=== PATIENT | female | born 1950 | race Caucasian/White ===

== ENCOUNTER 2020-12-28 08:46 | Outpatient (CLI) | payer MEDICARE, OTHER, SELFPAY ==
--- NOTE | 2020-12-28 09:00 | ECG_ITS ---
Measurements Intervals [place] Rate: 67 P: 68 AK: 202 QRS: 47 QRSD: 86 T: 33 QT: 374 QTc: 397 Interpretive Statements SINUS RHYTHM BORDERLINE R WAVE PROGRESSION, ANTERIOR LEADS BASELINE ARTIFACT- I, II, III, AVR, AVL, AVF BORDERLINE ECG Electronically Signed On 12-28-2020 9:11:10 CDT by Jordan Hunter D.O.
== END 2020-12-28 08:47 | disposition home or self-care (01) ==
PROVIDERS: PCP Family Medicine Sports Medicine; Visit Provider Orthopaedic Surgery
DX: E78.00 Pure hypercholesterolemia, unspecified (principal); Z01.818 Encounter for other preprocedural examination; R94.31 Abnormal electrocardiogram [ECG] [EKG]
CPT/HCPCS: 93005

== ENCOUNTER 2021-01-01 02:00 | Day surgery (SDC) | payer MEDICARE, OTHER, SELFPAY ==
[2020-12-27 11:13] VITALS: BMI 25.4
--- NOTE | 2020-12-29 15:26 | WPDANESEPPF ---
Anes - Initial Pre Proc Eval Procedure: Operation Date: 01/01/21 15:30 Proposed Procedures p Left Thumb Trigger Finger Release - Caden Avery MD Date/Time: 12/29/20 15:26 Surgeon: Caden Avery MD Pre Op Diagnosis: left thumb trigger finger Patient Data Age: 70 Gender: F Height: 1.57 m Weight: 63 kg Allergies Allergy/AdvReac Type Severity Reaction Status Date / Time No Known Allergies Allergy Verified 01/01/21 12:38 Home Medications Medication Instructions Recorded Confirmed Type atorvastatin 40 mg tablet 20 mg PO DAILY 04/20/19 01/01/21 History calcium carbonate-vitamin D3 600 1 tablet PO DAILY 04/20/19 01/01/21 History mg (1,500 mg)-800 unit tablet conjugated estrogens 0.625 mg/gram 0.625 mg VAGINAL WEEKLY PRN 04/20/19 01/01/21 History vaginal cream glucosamine-chondroitin 250 mg-200 1 tablet PO DAILY 04/20/19 01/01/21 History mg tablet jxmyuyff-cuf-PO 200 mcg-vit K 15 1 tablet PO DAILY 04/20/19 01/01/21 History mcg-lycope 150 ysj-[id number]-ibqm tablet multivitamin 1 tablet PO DAILY 04/20/19 01/01/21 History levothyroxine 112 mcg capsule 112 mcg PO QAM 09/28/19 01/01/21 History aspirin [Aspir-81] 81 mg PO DAILY 12/27/20 01/01/21 History Patient hx anesthesia problems: none Family hx anesthesia problems: none Results Review: All pre-operative results and documents have been reviewed as part of the pre-operative evaluation. FOR[facility]LY [facility], [facility] Past Medical History Medical History (Updated 12/29/20 @ 15:27 by Carlos Fung MD) Arthritis of carpometacarpal (CMC) joint of left thumb BMI 23.0-23.9, adult Colon cancer High cholesterol Hypothyroidism Osteoporosis Thyroid disease Trigger thumb of left hand Surgical History Surgical History Bone spur Elbows History of appendectomy 1964 History of bunionectomy History of cancer surgery 2016 History of section 1971,1975,1980 History of cholecystectomy 1997 History of fasciotomy Left Foot plantar 01/2018 History of hand surgery Right thumb CMC arthroplasty 2011 History of knee surgery Right Knee-Ligament 1997 History of partial hysterectomy 1980 History of total knee replacement (TKR) left 04/2015 History of total knee replacement (TKR) right 04/2018 Family History Family History Sibling Diabetes mellitus Cancer Heart disease Sibling Cancer Mother Heart disease Osteoporosis Social History Social History Smoking status: Never smoker Alcohol intake: current Drinks per week: 6 Alcohol use details: Occasional Substance use: never Living arrangements: with family Additional living arrangements comments: [facility] Gender identity (if verbalized by the patient): Female Spiritual care concerns: No Anes - Eval Final PreProcedure Day of Procedure 12/29/20 15:26 Patient weight: normal Heart: regular rate and rhythm Lungs: clear to auscultation and normal air movement Airway: Mallampati scale class II Neurological: alert and oriented Last oral intake: >/= 8 hours ASA classification: III Emergent: no Anesthetic plan: proceed Anesthesia type and monitoring: general GIVS Results Review: All pre-operative results and documents have been reviewed as part of the pre-operative evaluation. Informed Consent: The patient's anesthetic plan and its attendant risks and benefits were discussed with the patient/family/POA. Questions were solicited and answers provided to the satisfaction of the patient/family/POA.
[2021-01-01 12:27] VITALS: BP 131/69; PULSE 80; RESP 16; TEMP 36.3; O2SAT 100
[2021-01-01] MEDS: ACETAMINOPHEN 500 MG TABLET 1000 MG PO (12:47)
[2021-01-01] MEDS: LACTATED RINGERS 1,000 ML 30 ML IV CONT (13:00)
[2021-01-01] MEDS: KETOROLAC 15 MG/ML VIAL (*BKC) IV PUSH (13:01)
--- NOTE | 2021-01-01 15:17 | WPDHPUPDATE1 ---
History and Physical Update Update Date/Time: 01/01/21 15:17 History and Physical has been reviewed, including an updated exam of the patient. There are NO changes in the patient's condition. Risks, benefits, and alternatives have been discussed and questions answered. Patient agrees to proceed with procedure.
[2021-01-01] MEDS: ceFAZolin 2 GM/D5W 50 ML 2 GM/50 ML BAG IVPB (15:20)
[2021-01-01] MEDS: BUPIVACAINE HCL 0.25% PF 30 ML VIAL INFILTRATE (15:30)
--- NOTE | 2021-01-01 15:56 | W.PM.PROC2 ---
Procedure Note - Detailed Date of Procedure 01/01/21 Pre-op Diagnosis left thumb trigger finger Post-op Diagnosis same Procedure Performed Left trigger thumb release Surgeon Caden Avery MD Cooper Helper Sergio Anesthesia MAC and local Description of Procedure The patient was identified and proper site identified. She was taken to the operating room and transferred to the OR table placing supine taking care to pad the torso and extremities. IV sedation was administered. A nonsterile tourniquet was placed high on the left arm which was prepped and draped in the usual sterile fashion. Several cc of .25 % plain Marcaine was injected into the subcutaneous tissue over the A1 raj of the left first digit. The extremity was exsanguinated and the tourniquet was inflated to 250 mmHg remaining up for about eight minutes. A longitudinal incision was made over the A1 raj. Subcutaneous tissue was bluntly dissected down to the raj while protecting the neurovascular bundles. The A1 raj was identified and then transected longitudinally in line with the incision and tendons. The tendons were delivered into the wound verifying the adequacy of the release. Hemostasis was carried out. The wound was irrigated with sterile saline. Skin edges were reapproximated with 4-0 nylon suture. Sterile dressing was applied. Tourniquet was released. She tolerated the procedure well and was transferred back to a cart, then taken to the recovery area in stable condition. There were no known intraoperative complications. Estimated blood loss was negligible. Perioperative antibiotics were administered. Estimated Blood Loss 1 Tourniquet Time 8 Drains No Packing No Pathology none sent Complications No immediate complications Condition stable Disposition PACU
[2021-01-01 15:57] VITALS: BP 102/50; PULSE 80; RESP 14; TEMP 36.4; O2SAT 100
[2021-01-01 16:27] VITALS: BP 121/75; PULSE 79; RESP 17
[2021-01-01 16:44] VITALS: BP 128/70; PULSE 66; RESP 17
== END 2021-01-01 17:01 | disposition home or self-care (01) ==
PROVIDERS: PCP Family Medicine Sports Medicine; Visit Provider Orthopaedic Surgery
PROC: (CPT 26055; principal; 2021-01-01 15:30)
DX: M65.312 Trigger thumb, left thumb (principal); M18.12 Unilateral primary osteoarthritis of first carpometacarpal joint, left hand; M25.511 Pain in right shoulder; E78.00 Pure hypercholesterolemia, unspecified; M81.0 Age-related osteoporosis without current pathological fracture; E07.9 Disorder of thyroid, unspecified; Z79.82 Long term (current) use of aspirin; E03.9 Hypothyroidism, unspecified
CPT/HCPCS: 26055; A9270; J0690; J1100; J1885; J2704; J3010; J7120